=== PATIENT | male | born 1995 | race Caucasian/White ===

== ENCOUNTER 2019-05-28 21:41 | Emergency (ER) | payer SELFPAY ==
[~2019-05-28] VITALS: Ht 185.4 cm; Wt 111.1 kg
[2019-05-28 22:44] VITALS: BP 127/72
--- NOTE | 2019-05-28 23:04 | NUR ---
BIBSELF FROM HOME TO ER BED 10. AAOX4, NO RESP DSITRESS NOTED, BREARTHING EVEN AND UNLABORED. C/O HEAD INJURY. PT REPORTS THAT HE WAS A T AN URGENT CARE EARLIER AND WAS SEND BECAUSE OF CONCERN OF UNEQUAL PUPIL. PT REPORTS THAT HE OBTAINED THE INJURY WHILE PAYING BASKETBALL, GOT ELBOW ON THE L EYE AND FELL HITTING HIS HEAD CAUSING 8 CUTS ON HIS HEAD. HE DENIES ANY KO. NOTED R PUPIL IS SMALLER THAN THE LEFT PUPIL. MD WAS AT BEDSIDE FOR EVAL. ORDERS RECEIVED NOTED AND CARRIED OUT.
--- NOTE | 2019-05-28 23:20 | NUR ---
Patient does not wish to proceed with medical care recommended by Mary Ann Pandey. Patient given information related to possible complications, up to and including , which could occur as a result of leaving the hospital at this time. Patient verbalizes understanding of risks involved due to leaving against medical advice. Patient has signed AMA form.
[2019-05-28] MEDS ORDERED: TDAP [DIPH/PERTUSSIS/TET] 0.5 ML VIAL IM ONE (23:30)
== END 2019-05-28 23:22 | disposition left against medical advice (07) ==
LOC: ER 21:42
DX: S01.81XA Laceration without foreign body of other part of head, initial encounter (principal); S05.8X2A Other injuries of left eye and orbit, initial encounter; S05.8X1A Other injuries of right eye and orbit, initial encounter; F10.10 Alcohol abuse, uncomplicated; F17.200 Nicotine dependence, unspecified, uncomplicated; Y90.9 Presence of alcohol in blood, level not specified; W18.39XA Other fall on same level, initial encounter; Y93.89 Activity, other specified; Y92.89 Other specified places as the place of occurrence of the external cause; Y99.8 Other external cause status